=== PATIENT | male | born 1960 | race Hispanic/Latino ===

== ENCOUNTER 2020-01-26 16:48 | Emergency (ER) | payer BC ==
[2020-01-26] MEDS ORDERED: ONDANSETRON HCL 4 MG/2 ML VIAL ONE (17:08)
[2020-01-26] MEDS ORDERED: MORPHINE SULFATE 2 MG/ML 1ML SYG ONE (17:08)
[2020-01-26] MEDS ORDERED: SODIUM CHLORIDE 0.9% 1000ML 1,000 ML IV ONE (17:09)
[2020-01-26 17:14] LABS: BASOPHILS % (AUTO) 0.7 % (0.0-5.0); EOSINOPHILS % (AUTO) 3.9 % (0.0-8.0); HEMATOCRIT 44.9 % (42-54); LYMPHOCYTES % (AUTO) 31.9 % (21.0-51.0); MEAN CORPUSCULAR HEMOGLOBIN 30.1 pg (27.0-33.0); MEAN CORPUSCULAR HGB CONC 35.6 g/dL (32.0-36.0); MEAN CORPUSCULAR VOLUME 84.4 fL (79-99); MONOCYTES % (AUTO) 7.3 % (3.0-13.0); NEUTROPHILS % (AUTO) 55.7 % (40.0-77.0); PLATELET COUNT (AUTO) 143 K/uL (130-400); RED BLOOD CELL COUNT(AUTO) 5.32 MIL/uL (4.50-6.20); WHITE BLOOD COUNT (AUTO) 5.9 K/uL (4.8-10.8)
[2020-01-26 17:23] LABS: CREATININE 1.3 mg/dL (0.5-1.5); POTASSIUM 3.8 mmol/L (3.5-5.1)
[2020-01-26] MEDS ORDERED: TETANUS/DIPHTHERIA TOXOID [ADULT] 0.5 ML VIAL IM ONE (17:23)
[2020-01-26] MEDS ORDERED: CEFAZOLIN SODIUM 1 GM VIAL ONE (17:23)
[2020-01-26] MEDS ORDERED: SODIUM CHLORIDE 0.9% 100 ML IV ONE (17:24)
[2020-01-26 17:26] LABS: INR 1.03 (0.85-1.15); PARTIAL THROMBOPLASTIN TIME 26.5 SEC (26.3-35.5); PROTHROMBIN TIME 11.1 SEC (9.6-11.6)
[2020-01-26 17:28] LABS: ALBUMIN 4.2 g/dL (3.5-5.0); BILIRUBIN,TOTAL 0.7 mg/dL (0.2-1.0); TOTAL PROTEIN, SERUM 7.7 g/dL (6.0-8.3)
== END 2020-01-26 18:58 | disposition left against medical advice (07) ==
LOC: EDH 16:48
DX: S61.442A Puncture wound with foreign body of left hand, initial encounter (principal); E11.9 Type 2 diabetes mellitus without complications; I10 Essential (primary) hypertension; Z72.0 Tobacco use; W33.01XA Accidental discharge of shotgun, initial encounter; Y93.89 Activity, other specified; Y92.89 Other specified places as the place of occurrence of the external cause; Y99.8 Other external cause status
CPT/HCPCS: 36415; 73060; 73090; 73130; 80053; 85025; 85610; 85730; 90471; 90714; 96365; 96375; 99285; J0690; J2405; J7030